=== PATIENT | female | born 1990 | race Hispanic/Latino ===

== ENCOUNTER 2019-03-07 23:07 | Emergency (ER) | payer SELFPAY ==
[2019-03-07 23:33] LABS: #Eosinphils 0.1 thou/uL (0.0-0.7); #Monocytes 0.8 thou/uL (0.11-0.59); #Neutrophils 4.9 thou/uL (1.40-6.50); %Basophils 0.5 % (0.0-1.0); %Eosinophils 1.5 % (0.0-10.0); %Lymphocytes 34.1 % (21.0-51.0); %Monocytes 8.6 % (0.0-10.0); %Neutrophils 55.3 % (42.0-75.0); Hemoglobin 14.3 g/dL (12.0-16.0); Mean Corpuscular HGB CONC 33.7 g/dL (32.0-36.0); Mean Corpuscular Hemoglobin 29.5 pg (27.0-31.0); Mean Corpuscular Volume 87.5 fL (78.0-98.0); Platelet Count 209 thou/uL (130-400); Red Blood Cell (RBC) Count 4.84 mill/uL (4.20-5.40); White Blood Cell (WBC) Count 8.9 thou/uL (4.8-10.8)
[2019-03-07 23:50] LABS: Anion Gap 10 mmol/L (10-20); BUN (Urea Nitrogen) 13 mg/dL (7.0-18.7); Calc. Creatinine Clearance 0 mL/min (70-130); Calcium 9.5 mg/dL (7.8-10.44); Carbon Dioxide 23 mmol/L (22-29); Chloride 107 mmol/L (98-107); Estimated GFR-MDRD 87; Glucose 82 mg/dL (70-105); Potassium 3.7 mmol/L (3.5-5.1); Sodium 136 mmol/L (136-145)
[2019-03-08 00:19] LABS: Bacteria/HPF None Seen HPF (None Seen); Bilirubin Negative (Negative); Blood, Urine Negative (Negative); Clarity Clear (Clear); Glucose, Urine (Dipstick) Normal (Negative); Leukocyte 25 Leu/uL (Negative); Mucous/LPF Rare LPF (<2+); Nitrite Negative (Negative); Protein, Urine (Dipstick) 10 mg/dL (Neg-Trace); RBC/HPF 0-3 HPF (0-3); Squamous Epithelial 0-3 HPF (0-3)
== END 2019-03-08 00:50 | disposition home or self-care (01) ==
LOC: ERS 23:07
DX: O23.11 Infections of bladder in pregnancy, first trimester (principal); O99.281 Endocrine, nutritional and metabolic diseases complicating pregnancy, first trimester; Z3A.11 11 weeks gestation of pregnancy; Z79.899 Other long term (current) drug therapy
CPT/HCPCS: 36415; 80048; 81003; 81015; 84702; 85025; 86900; 86901

== ENCOUNTER 2019-03-26 23:36 | Emergency (ER) | payer OTHER, SELFPAY ==
[2019-03-27 00:16] LABS: #Eosinphils 0.1 thou/uL (0.0-0.7); #Lymphocytes 2.6 thou/uL (1.20-3.40); #Monocytes 0.6 thou/uL (0.11-0.59); #Neutrophils 4.2 thou/uL (1.40-6.50); %Basophils 0.4 % (0.0-1.0); %Eosinophils 1.4 % (0.0-10.0); %Lymphocytes 34.7 % (21.0-51.0); %Monocytes 8.1 % (0.0-10.0); %Neutrophils 55.4 % (42.0-75.0); Hemoglobin 13.7 g/dL (12.0-16.0); Mean Corpuscular HGB CONC 34.8 g/dL (32.0-36.0); Mean Corpuscular Hemoglobin 30.2 pg (27.0-31.0); Mean Corpuscular Volume 86.8 fL (78.0-98.0); Mean Platelet Volume 8.1 fL (7.4-10.4); Platelet Count 184 thou/uL (130-400); Red Blood Cell (RBC) Count 4.54 mill/uL (4.20-5.40); White Blood Cell (WBC) Count 7.5 thou/uL (4.8-10.8)
[2019-03-27 01:51] LABS: Bacteria/HPF None Seen HPF (None Seen); Bilirubin Negative (Negative); Blood, Urine 2+ (Negative); Clarity Clear (Clear); Glucose, Urine (Dipstick) Normal (Negative); Leukocyte Negative Leu/uL (Negative); Nitrite Negative (Negative); Protein, Urine (Dipstick) 10 mg/dL (Neg-Trace); RBC/HPF Greater than 50 HPF (0-3); Urobilinogen Normal mg/dL (Less than 2); WBC/HPF 0-3 HPF (0-3)
[2019-03-27] MEDS ORDERED: Acetaminophen 500 MG TAB ONE (02:44)
--- NOTE | 2019-03-27 07:39 | ULT ---
PRELIMINARY REPORT/[facility]/EMERGENCY AFTER HOURS PROCEDURE: EXAM: US , Limited EXAM DATE/TIME: 03/26/2019 11:59 PM CLINICAL HISTORY: 28 years old, female; Lmp or gestational age (in weeks): 14w4d; Antepartum complications; Bleeding and other: Diarrhea; complicated by abdominal or pelvic pain; Left lower quadrant; Second trimester; ; Patient HX: Pelvic cramping pain - more to llq, vaginal bleeding tonight, diarrhea TECHNIQUE: Imaging protocol: Real-time ultrasound of the maternal uterus with image documentation. Exam focused on the clinical indication. COMPARISON: No relevant prior studies available. FINDINGS: Single living intrauterine gestation in breech presentation. heart rate: 180 bpm. ELVIE: 14w4d. JOANNA(ELVIE): 09/20/2019. JOANNA(LMP): 09/23/2019. Placenta is fundal. No hemorrhage or abruption. Amniotic fluid appears adequate. Cervix is closed. No free fluid. IMPRESSION: Single viable intrauterine . No acute findings. Thank you for allowing us to participate in the care of your patient. Dictated and Authenticated by: Rory Qureshi MD 03/27/2019 1:29 AM Central Time ([place] & [place]) FINAL REPORT LIMITED OB ULTRASOUND: FINDINGS/IMPRESSION: I agree with the preliminary report given by Dr. Rory Qureshi of [facility]. Transcribed Date/Time: 03/27/2019 7:42 AM
== END 2019-03-27 02:47 | disposition home or self-care (01) ==
LOC: ERS 23:36
DX: O20.9 Hemorrhage in early pregnancy, unspecified (principal); O99.281 Endocrine, nutritional and metabolic diseases complicating pregnancy, first trimester; E03.9 Hypothyroidism, unspecified; Z79.899 Other long term (current) drug therapy; Z3A.14 14 weeks gestation of pregnancy
CPT/HCPCS: 36415; 76856; 81003; 81015; 85025

== ENCOUNTER 2019-05-18 10:35 | Outpatient (CLI) | payer OTHER ==
--- NOTE | 2019-05-18 11:40 | ULT ---
Complete obstetrical ultrasound INDICATION: Evaluate anatomy TECHNIQUE: Grayscale, M-mode Doppler and Doppler images were obtained of the abdomen and pelvis to ev aluate the patient's known . COMPARISON: Prior dated March 28, 2019 FINDINGS: Body habitus limit image detail. Number of gestations: Single. Presentation: Transverse with the head to the maternal left. Placental location: Anterior Previa: No evidence for previa. Cervical length: 5.29 cm LUIS: 9.3 cm. heart rate: 156 bpm. Biparietal diameter: 4.95cm, 21 weeks 0 days, Not calculated.. Head circumference: 18.76 cm, 21 weeks 1 day, Not calculated. Abdominal circumference: 15.72 cm, 21 weeks 0 days, Not calculated. Femoral length: 3.54cm, 21 weeks 2 days, Not calculated. Estimated weight: 393 g +/- 57g 0 lbs. 14 oz., 15th percentile SURVEY: head: Normal appearing. Cerebellum: Normal appearing. Cisterna magna: Normal appearing. Lateral ventricles: Normal appearing. 4 chamber heart: Normal appearing.. Stomach: Normal appearing. Kidneys: Normal appearing. Cord insertion: Normal appearing. Bladder: Normal appearing. Spine: The cervical and thoracic spine worse well seen. The lower lumbar and sacral spines were not w ell interrogated. Lips and nose: Not demonstrated Extremities: Normal appearing. Three-vessel CORD: Normal appearing. The average gestational age by ultrasound is 21 weeks and 1 daywith estimated due date of September 27, 2019. The estimated dates by clinical data is 21 weeks 5 dayswith estimated due date of September 23, 2019. IMPRESSION: 1. Single live intrauterine gestation with size and dates as above. 2. survey appeared within normal limits; however, the lower spine and lips and nose were not we ll seen. A follow-up examination in 1-2 weeks to complete the survey is recommended.
== END 2019-05-18 10:36 | disposition home or self-care (01) ==
LOC: BICULT 10:35
DX: O09.92 Supervision of high risk pregnancy, unspecified, second trimester (principal); Z3A.21 21 weeks gestation of pregnancy
CPT/HCPCS: 76805

== ENCOUNTER 2019-06-19 22:06 | Day surgery (SDC) | payer OTHER ==
[2019-06-19 23:02] VITALS: BP 133/61; TEMP 98.7; BMI 54.9
[2019-06-19] MEDS ORDERED: hydrALAZINE 20 MG/ML VIAL SLOW IVP PRN (23:54)
[2019-06-20 00:14] LABS: #Basophils 0.1 thou/uL (0.0-0.2); #Eosinphils 0.2 thou/uL (0.0-0.7); #Lymphocytes 2.6 thou/uL (1.20-3.40); #Monocytes 0.7 thou/uL (0.11-0.59); %Basophils 0.6 % (0.0-1.0); %Eosinophils 1.5 % (0.0-10.0); %Lymphocytes 24.9 % (21.0-51.0); %Neutrophils 66.1 % (42.0-75.0); Hemoglobin 12.4 g/dL (12.0-16.0); Mean Corpuscular HGB CONC 34.7 g/dL (32.0-36.0); Mean Corpuscular Hemoglobin 30.8 pg (27.0-31.0); Mean Corpuscular Volume 88.8 fL (78.0-98.0); Mean Platelet Volume 7.8 fL (7.4-10.4); Platelet Count 216 thou/uL (130-400); RBC Distribution Width 13.8 % (11.5-14.5); Red Blood Cell (RBC) Count 4.03 mill/uL (4.20-5.40); White Blood Cell (WBC) Count 10.6 thou/uL (4.8-10.8)
[2019-06-20 00:28] LABS: Bilirubin Negative (Negative); Blood, Urine Negative (Negative); Clarity Clear (Clear); Glucose, Urine (Dipstick) Negative (Negative); Leukocyte Negative (Negative); Nitrite Negative (Negative); Protein, Urine (Dipstick) Negative (Neg-Trace)
[2019-06-20 00:33] LABS: ALT (SGPT) 50 U/L (8-55); AST (SGOT) 31 U/L (5-34); Albumin 3.7 g/dL (3.5-5.0); Alkaline Phosphatase 71 U/L (40-110); Anion Gap 11 mmol/L (10-20); BUN (Urea Nitrogen) 11 mg/dL (7.0-18.7); Bilirubin, Total 0.5 mg/dL (0.2-1.2); Calc. Creatinine Clearance 250 mL/min (70-130); Calcium 9.4 mg/dL (7.8-10.44); Carbon Dioxide 23 mmol/L (22-29); Chloride 108 mmol/L (98-107); Estimated GFR-MDRD Greater than 90; Glucose 79 mg/dL (70-105); Potassium 3.7 mmol/L (3.5-5.1); Protein, Total 6.7 g/dL (6.0-8.3); Sodium 138 mmol/L (136-145)
[2019-06-20 01:14] LABS: Creatinine, Urine 169.82 mg/dL (47-110)
--- NOTE | 2019-06-20 07:28 | SS ---
DATE OF ADMISSION: 06/19/2019 DATE OF DISCHARGE: 06/20/2019 REGULAR PHYSICIAN: Ivy Bae MD EVALUATING PHYSICIAN: Parish Arredondo MD CHIEF COMPLAINT: Elevated blood pressure at home. HISTORY OF PRESENT ILLNESS: Ms. Escalera is a 29-year-old 10, para 4, with an estimated date of confinement of 09/29/2019, who presents complaining of elevated blood pressure 157/87 at home. She also has had two episodes of diarrhea and some mild right upper quadrant discomfort. She denies bleeding or ruptured membranes. She denies visual changes. Her care has been with Dr. Ivy Bae and has been uncomplicated so far. PAST OBSTETRICAL HISTORY: Includes one elective termination of , 4 miscarriages, and 4 vaginal deliveries. PAST MEDICAL HISTORY: Hypothyroidism. PAST SURGICAL HISTORY: D and C x1. CURRENT MEDICATIONS: vitamins and Synthroid 75 mcg daily. ALLERGIES: NO KNOWN ALLERGIES. SOCIAL HISTORY: Denies tobacco, alcohol, or drug use. FAMILY HISTORY: Unremarkable. REVIEW OF SYSTEMS: Denies ruptured membranes, vaginal bleeding, or decreased movement. PHYSICAL EXAMINATION: VITAL SIGNS: Her blood pressures in triage are initially 113/57 and 116/63. She is afebrile. GENERAL: She is pleasant and in no distress. ABDOMEN: Soft, obese, and nontender. PELVIC: Deferred. heart rate tracing is stable. No decelerations are seen. No uterine activity seen. LABORATORY DATA: White count 10.6, hemoglobin and hematocrit are 12.4 and 35.8, and platelet count 216,000. Chemistries show sodium of 138, potassium of 3.7, creatinine of 0.73, glucose of 79, total bilirubin 0.5, AST 31, ALT 50. Urinalysis shows specific gravity of 1.020 with negative protein, negative glucose, trace ketones, and protein to creatinine ratio of 0.06. ASSESSMENT: 1. Twenty-six week intrauterine . 2. No evidence of elevated blood pressure or -induced hypertension. PLAN: The patient has been dismissed to home. She was reassured. Signs and symptoms of preeclampsia were reviewed with her in detail. She states she has a followup appointment with Dr. Ivy Bae in the next 2 weeks. Job ID: [id number]
== END 2019-06-20 01:35 | disposition home or self-care (01) ==
LOC: L&D/OP 22:06
PROVIDERS: ATTEND Obstetrics & Gynecology
DX: O99.89 Other specified diseases and conditions complicating pregnancy, childbirth and the puerperium (principal); R03.0 Elevated blood-pressure reading, without diagnosis of hypertension; R10.11 Right upper quadrant pain; O99.282 Endocrine, nutritional and metabolic diseases complicating pregnancy, second trimester; E03.9 Hypothyroidism, unspecified; Z3A.26 26 weeks gestation of pregnancy; Z79.899 Other long term (current) drug therapy
CPT/HCPCS: 36415; 80053; 81003; 82570; 84156; 85025; 99283

== ENCOUNTER 2019-07-26 10:16 | Outpatient (CLI) | payer OTHER ==
--- NOTE | 2019-07-26 11:56 | ULT ---
LIMITED OB ULTRASOUND: HISTORY: Evaluate growth. FINDINGS: A single live intrauterine gestation is seen with measurements corresponding to an estimated gestatio nal age of 31 weeks 5 days and an JOANNA of 09/22/2019. The estimated weight measures 1732 g or 3 lbs 13 oz (47th percentile by Hadlock criteria). measurements are as follows: BPD: 7.98 cm (32 weeks 1 day) HC: 29.15 cm (32 weeks 1 day) AC: 27.01 cm (31 weeks 1 day) FL: 5.96 cm (31 weeks 1 day) heart rate measures 150 beats per minute. Placenta is anteriorly located without evidence of pl acenta previa. LUIS measures 15.8 cm. IMPRESSION: Single live intrauterine of 31 weeks' 5 days' estimated gestational age and estimated date of delivery of 09/22/2019. POS: MIKAL
== END 2019-07-26 10:17 | disposition home or self-care (01) ==
LOC: BICULT 10:16
PROVIDERS: ATTEND Nurse Practitioner
DX: O09.93 Supervision of high risk pregnancy, unspecified, third trimester (principal); Z3A.31 31 weeks gestation of pregnancy
CPT/HCPCS: 76815

== ENCOUNTER 2019-08-31 00:22 | Day surgery (SDC) | payer OTHER ==
[2019-08-31 00:53] VITALS: BMI 55.7
[2019-08-31] MEDS ORDERED: hydrALAZINE 20 MG/ML VIAL SLOW IVP PRN (02:14)
--- NOTE | 2019-08-31 02:49 | PRG ---
DATE OF SERVICE: 08/31/2019 TIME OF SERVICE: 02:15. PRESENTING COMPLAINT: Blurred vision and mild headache. HISTORY OF PRESENT ILLNESS: The patient is a 29-year-old, 12, para 4, AB 7 at 36 weeks gestation. Antepartum records not available. She sees Dr. Rich Carter at [facility]. She states that she has small amount of blurred vision earlier this evening and a mild headache. She denies scotoma. She denies right upper quadrant pain. She reports an active fetus. [facility]ODER HISTORY: Antepartum record not available. Vaginal delivery x4, D and C x1, miscarriage x7. MEDICAL HISTORY: Denies. PAST SURGICAL HISTORY: Denies. ALLERGIES: DENIES. MEDICATIONS: vitamins. SOCIAL HISTORY: Denies tobacco, alcohol, or IV drug abuse. FAMILY HISTORY: Noncontributory. REVIEW OF SYSTEMS: Noncontributory. PHYSICAL EXAMINATION: GENERAL: Morbidly obese female. VITAL SIGNS: Temperature 98.2, pulse 97, respirations 18, and blood pressure is 110/72. HEENT: Within normal limits. LUNGS: Clear to auscultation bilaterally. HEART: Regular rate and rhythm. ABDOMEN: Soft, nontender. Fundal height 36 cm. Vaginal exam deferred. EXTREMITIES: No clubbing, cyanosis, or edema. monitoring is carried out for greater than an hour, which revealed category 1 tracing. No contractions. No decelerations. Serial blood pressures carried out, systolics were in the 110s to 120s with diastolics in the 70s to 80s. No evidence. IMPRESSION: Mild visual changes and headache in without evidence of preeclampsia at 36 weeks gestation. PLAN: ER precautions. Discharge home. Keep scheduled followup with Dr. Carter. Job ID: [id number]
== END 2019-08-31 02:23 | disposition home or self-care (01) ==
LOC: L&D/OP 00:22
PROVIDERS: ATTEND Family Medicine
DX: O99.89 Other specified diseases and conditions complicating pregnancy, childbirth and the puerperium (principal); H53.8 Other visual disturbances; R51 Headache; O99.213 Obesity complicating pregnancy, third trimester; E66.01 Morbid (severe) obesity due to excess calories; O09.293 Supervision of pregnancy with other poor reproductive or obstetric history, third trimester; O34.219 Maternal care for unspecified type scar from previous cesarean delivery; Z3A.36 36 weeks gestation of pregnancy
CPT/HCPCS: 99282

== ENCOUNTER 2019-09-04 18:00 | Inpatient (IN) | payer OTHER ==
[2019-09-04] MEDS ORDERED: Misoprostol 200 MCG TAB PR PRN (22:17)
[2019-09-04] MEDS ORDERED: Ondansetron PF 4 MG/2 ML Vial IVP PRN (22:17)
[2019-09-04] MEDS ORDERED: NS w/ Oxytocin 10 units 500 ML IV SCH (22:17)
[2019-09-04] MEDS ORDERED: NS / Oxytocin 40 units/1000ml 1,000 ML IV PRN (22:17)
[2019-09-04] MEDS ORDERED: Diphenoxylate HCl/Atropine Tablet PO PRN (22:17)
[2019-09-04] MEDS ORDERED: Lidocaine 1% (PF) 30 ML VIAL SC PRN (22:17)
[2019-09-04] MEDS ORDERED: HYDROcodone/Acetaminophen 5/325 mg Tablet PO PRN (22:17)
[2019-09-04] MEDS ORDERED: hydrALAZINE 20 MG/ML VIAL SLOW IVP PRN (22:17)
[2019-09-04] MEDS ORDERED: Promethazine HCl 25 MG/ML VIAL IM PRN (22:17)
[2019-09-04] MEDS ORDERED: Butorphanol Tartrate 1 MG/ML VIAL SLOW IVP PRN (22:17)
[2019-09-04] MEDS ORDERED: Ibuprofen 800 MG TAB PO PRN (22:17)
[2019-09-04] MEDS ORDERED: Methylergonovine 0.2 MG/ML VIAL IM PRN (22:17)
[2019-09-04] MEDS ORDERED: Carboprost 250 MCG/ML AMP IM PRN (22:17)
[2019-09-04] MEDS: Lactated Ringer's 1,000 ML IV SCH (22:35)
[2019-09-04 22:51] LABS: Hemoglobin 12.9 g/dL (12.0-16.0); Mean Corpuscular HGB CONC 34.2 g/dL (32.0-36.0); Mean Corpuscular Hemoglobin 29.3 pg (27.0-31.0); Mean Corpuscular Volume 85.8 fL (78.0-98.0); Mean Platelet Volume 8.4 fL (7.4-10.4); Platelet Count 244 thou/uL (130-400); RBC Distribution Width 14.7 % (11.5-14.5); Red Blood Cell (RBC) Count 4.39 mill/uL (4.20-5.40); White Blood Cell (WBC) Count 9.2 thou/uL (4.8-10.8)
[2019-09-04 23:34] LABS: HBSAg Index 0.25 S/CO (0-0.99); Hep B Surf Ag Non-Reactive S/CO (NonReactive); Syphilis Antibody Nonreactive (Nonreactive); Syphilis Antibody Index 0.02 S/CO (<1.00 Non-Reactive)
[2019-09-04] MEDS: NS w/ Oxytocin 10 units 500 ML IV SCH (23:35)
[2019-09-04 23:46] VITALS: BMI 56.0
[2019-09-05] MEDS: Misoprostol 100 MCG TAB PO SCH ×4 (00:42→16:11)
[2019-09-05] MEDS: Lactated Ringer's 1,000 ML IV SCH ×3 (07:02→18:52)
[2019-09-05] MEDS ORDERED: Fentanyl 4 mcg/Bup 0.1% Cadd 100 ML ONE (14:34)
[2019-09-05] MEDS ORDERED: Lidocaine 1.5%/Epinephrine 1:200,000 5 ML AMPUL IJ ONE (14:39)
[2019-09-05] MEDS ORDERED: Naloxone HCl 0.4 mg/ml Vial IVP PRN ×4 (15:20→22:00)
[2019-09-05] MEDS ORDERED: Lactated Ringer's 500 ML IV PRN (15:20)
[2019-09-05] MEDS ORDERED: ePHEDrine/0.9% NaCl/PF SYRINGE 50 mg/10 ml SLOW IVP PRN (15:20)
[2019-09-05] MEDS ORDERED: Acetaminophen 325 MG TAB PO PRN (15:20)
[2019-09-05] MEDS ORDERED: Ondansetron PF 4 MG/2 ML Vial IVP PRN ×2 (15:20→22:00)
[2019-09-05] MEDS ORDERED: Promethazine HCl 25 MG/ML VIAL IM PRN ×2 (15:20→22:00)
[2019-09-05] MEDS ORDERED: diphenhydrAMINE 50 MG/ML VIAL IVP PRN (15:20)
[2019-09-05] MEDS ORDERED: Communication Order-Pharmacy FS PRN (15:30)
[2019-09-05] MEDS ORDERED: Fentanyl 4 mcg/Bupivacaine 0.1% Cassette 100 ML EPIDURAL SCH (15:30)
[2019-09-05] MEDS ORDERED: Azithromycin 500 MG VIAL ONE (20:40)
[2019-09-05] MEDS ORDERED: Bicitra 30 ML UDCUP PO SCH (20:45)
[2019-09-05] MEDS ORDERED: Azithromycin 500 MG in Sodium Chloride 0.9% 250 ML 250 ML IVPB SCH (20:45)
[2019-09-05] MEDS ORDERED: CEFAZOLIN 3 GM in Sodium Chloride 0.9% 100 ML IVPB SCH (20:45)
[2019-09-05] MEDS ORDERED: Lidocaine 2% 10 ML INJ ONE ×2 (20:59→21:03)
[2019-09-05] MEDS ORDERED: Lidocaine 1% PF 5 ML VIAL ONE (21:03)
[2019-09-05] MEDS ORDERED: Oxytocin 10 UNITS/ML VIAL ONE ×2 (21:06→21:42)
[2019-09-05] MEDS ORDERED: MORPHINE 5 MG/10 ML PF VIAL ONE (21:06)
[2019-09-05] MEDS ORDERED: PHENYLEPHRINE-NS 100 MCG/ML 10 ML SYRINGE ONE (21:27)
[2019-09-05] MEDS ORDERED: Succinylcholine Chloride 20 MG/ML 10 ml SYRINGE FS ONE (21:30)
[2019-09-05] MEDS ORDERED: PROPOFOL 20 ML ONE (21:30)
[2019-09-05] MEDS ORDERED: Carboprost 250 MCG/ML AMP ONE (21:32)
[2019-09-05] MEDS ORDERED: Methylergonovine 0.2 MG/ML VIAL ONE (21:32)
[2019-09-05] MEDS ORDERED: Bupivacaine PF 0.5% 30 ML VIAL ONE (21:33)
[2019-09-05] MEDS ORDERED: Fentanyl 100 MCG/2 ML VIAL ONE (21:39)
[2019-09-05 21:53] LABS: Actual Bicarbonate (HCO3a) 25.2 mEq/L (22-28); Base Excess (BEa) -3.6 mEq/L (-2.0 to +3.0)
[2019-09-05 21:55] LABS: Actual Bicarbonate (HCO3v) 23 mEq/L (22-28); Base Excess -3.2 mEq/L (-2.0 to +3.0); pH (Cord, venous) 7.34 (7.32-7.43)
[2019-09-05] MEDS ORDERED: Meperidine HCl/PF 25 MG/ML VIAL SLOW IVP PRN (22:00)
[2019-09-05] MEDS ORDERED: Ondansetron HCl/PF 4 MG/2 ML Vial IVP PRN (22:00)
[2019-09-05] MEDS ORDERED: Ketorolac Tromethamine 30 MG/ML VIAL IVP SCH (22:00)
[2019-09-05] MEDS ORDERED: L&D-Morphine 4 MG/ML VIAL SLOW IVP PRN (22:00)
[2019-09-05] MEDS ORDERED: HYDROmorphone 2 MG/ML VIAL SLOW IVP PRN (22:00)
[2019-09-05] MEDS ORDERED: Promethazine HCl 25 MG SUPP PR PRN (22:00)
[2019-09-05] MEDS ORDERED: Communication Order-Pharmacy FS SCH (22:00)
[2019-09-05] MEDS ORDERED: Naloxone HCl 0.4 mg/ml Vial IV PRN (22:00)
[2019-09-05] MEDS ORDERED: Ketorolac Tromethamine 30 MG/ML VIAL IVP PRN (22:00)
[2019-09-05] MEDS ORDERED: Ondansetron PF 4 MG/2 ML Vial ONE (22:08)
--- NOTE | 2019-09-05 23:13 | PDOC.OPDEL ---
OB Operative/Delivery Note Delivery Dr/Surgeon: Dr. Carter Assist: Dr. Roberson Pre-Delivery Diagnosis: medically indicated induction (chronic HTN) Procedure/Post Delivery Dx: primary low transverse CS Weeks gestation: 37 (37w4d) Anesthesia: epidural - Findings A Sex: male - Additional Findings/Plan Placenta delivered: manual removal findings: low transverse hysterotomy without extension Estimated blood loss: 600mL Compilations/Other Findings: Preoperative Diagnosis: 1)Term intrauterine 2)Non-reassuring heart tones 3)Chronic HTN 4)Morbid Obesity Postoperative Diagnosis: 1)Term intrauterine , delivered 2)Non-reassuring heart tones; multiple cord entanglements 3)Chronic HTN 4)Morbid Obesity Anesthesia: epidural Indications: The patient is a 29 year old female at 37.4 weeks gestation who presented for IOL for cHTN and when she was about 6cm developed recurrent deep variable decels not resolved with amnioinfusion. Procedure in Detail: After risks, benefits, and alternatives were explained to the patient, she gave informed consent. Pre-operative antibiotics included Cefazolin 2 gram IV, Azithromycin 500mg IV. The patient was taken to the operating room. She was placed in the supine position with a left tilt and prepped and draped in usual sterile fashion. A Pfannenstiel incision was made with a scalpel and carried down to the level of the fascia which was sharply nicked. The fascial cut was extended bilaterally with Hale scissors. The inferior and superior edges of the cut fascial edges were elevated with Yarely clamps and the underlying rectus muscles were sharply and bluntly dissected free. The recti were divided digitally and retracted manually. The peritoneum was entered bluntly and retracted manually. Bladder blade was placed. A low transverse score was made with the scalpel and the uterus was entered in the midline bluntly. Clear fluid was seen. The hysterotomy was extended manually. The was noted to be vertex and was easily delivered by fundal pressure. A nuchal cord x 2, and a cord around the body and right lower extremity were noted at delivery; Mouth and nares were bulb suctioned. Cord was untangled, clamped and cut and grossly normal male was handed to waiting nurse. Cord blood was obtained. Placenta was manually extracted, found to be intact with 3 vessel cord and discarded. The uterus was externalized and the endometrium was curetted with a dry lap. The bladder blade was replaced and the uterus was closed with a running locking #1 Monocryl suture. Following this multiple figure of eight sutures were placed on the middle aspect of the hysterotomy due to bleeding. There was still noted to be some bleeding so an imbricating layer was done in the usual fashion with 2-0 chromic suture. The abdomen was irrigated with saline and suctioned free of clots. Seprafilm was placed over the anterior aspect of the uterus. The uterus was internalized and the hysterotomy was again noted to be hemostatic. The peritoneum was closed with 3-0 monocryl running, non-locking suture. The fascia was closed with a running non-locking 0-PDS suture. The subcutaneous tissue was irrigated and there were no bleeders. The subcutaneous layer was closed with interrupted 3-0 vicryl suture. The skin was approximated with mikal and a reena wound vac was placed. All counts were correct. The patient tolerated the procedure well and was taken to the recovery room in stable condition. Estimated Blood Loss: 600 ml Complications: None Specimens: Cord blood sent to lab for blood type, cord gas sent, placenta sent for pathology. Findings: Grossly normal male went to nursery. Grossly normal placenta with 3 vessel cord, sent for pathology. Drains: Matthew to gravity draining clear urine Post delivery plan: routine recovery
[2019-09-05] MEDS ORDERED: Ketorolac Tromethamine 30 MG/ML VIAL ONE (23:22)
[2019-09-05] MEDS ORDERED: NS / Oxytocin 40 units/1000ml 1,000 ML ONE (23:34)
[2019-09-05] MEDS ORDERED: Sodium Chloride 0.9% 10 ML ONE ×2 (23:46→23:47)
[2019-09-06] MEDS ORDERED: hydrALAZINE 20 MG/ML VIAL SLOW IVP PRN (00:58)
[2019-09-06] MEDS ORDERED: Ondansetron PF 4 MG/2 ML Vial IVP PRN (00:58)
[2019-09-06] MEDS ORDERED: Bisacodyl 10 MG SUPP PR PRN (00:58)
[2019-09-06] MEDS ORDERED: diphenhydrAMINE 25 MG CAP PO PRN (00:58)
[2019-09-06] MEDS ORDERED: Promethazine HCl 25 MG/ML VIAL IM PRN (00:58)
[2019-09-06] MEDS ORDERED: Lanolin Ointment 7 GM TUBE TOP PRN (00:58)
[2019-09-06] MEDS: Misoprostol 100 MCG TAB PO SCH ×2 (01:41→01:42)
[2019-09-06] MEDS: NS w/ Oxytocin 10 units 500 ML IV SCH (01:42)
[2019-09-06] MEDS: Lactated Ringer's 1,000 ML IV SCH (01:57)
[2019-09-06] MEDS: diphenhydrAMINE 50 MG/ML VIAL IVP PRN ×2 (02:40→06:36)
[2019-09-06 05:41] LABS: Hemoglobin 10.3 g/dL (12.0-16.0); Mean Corpuscular HGB CONC 33.9 g/dL (32.0-36.0); Mean Corpuscular Hemoglobin 29.5 pg (27.0-31.0); Mean Corpuscular Volume 86.8 fL (78.0-98.0); Mean Platelet Volume 8.4 fL (7.4-10.4); Platelet Count 173 thou/uL (130-400); RBC Distribution Width 14.4 % (11.5-14.5); White Blood Cell (WBC) Count 10.9 thou/uL (4.8-10.8)
[2019-09-06] MEDS: Ketorolac Tromethamine 30 MG/ML VIAL IVP SCH ×3 (06:25→17:43)
[2019-09-06] MEDS: Ferrous Sulfate 325 MG TAB PO SCH ×2 (08:01→15:48)
[2019-09-06] MEDS ORDERED: Adacel (T-DAP) 0.5 ML SYRINGE IM ONE (09:00)
[2019-09-06] MEDS: Prenatal Vitamin 1 TAB PO SCH (09:09)
[2019-09-06] MEDS: Docusate Calcium (SURFAK) 240 MG CAP PO SCH ×2 (09:09→19:28)
[2019-09-06] MEDS: Simethicone Chewable 80 MG TAB PO PRN (09:09)
[2019-09-06] MEDS: HYDROcodone/Acetaminophen 5/325 mg Tablet PO PRN ×3 (09:38→23:22)
[2019-09-06] MEDS ORDERED: Meperidine HCl/PF 25 MG/ML VIAL IM PRN (10:00)
[2019-09-06] MEDS: Ibuprofen 800 MG TAB PO SCH (19:27)
[2019-09-07] MEDS: Ibuprofen 800 MG TAB PO SCH ×3 (03:54→20:09)
[2019-09-07] MEDS: HYDROcodone/Acetaminophen 5/325 mg Tablet PO PRN ×5 (03:55→21:07)
[2019-09-07] MEDS: Ferrous Sulfate 325 MG TAB PO SCH ×2 (08:07→16:43)
[2019-09-07] MEDS: Docusate Calcium (SURFAK) 240 MG CAP PO SCH ×2 (10:04→20:09)
[2019-09-07] MEDS: Prenatal Vitamin 1 TAB PO SCH (10:04)
[2019-09-07] MEDS: Simethicone Chewable 80 MG TAB PO PRN ×3 (10:05→21:15)
[2019-09-08] MEDS: HYDROcodone/Acetaminophen 5/325 mg Tablet PO PRN ×4 (00:52→14:54)
[2019-09-08] MEDS: Ibuprofen 800 MG TAB PO SCH ×2 (04:06→13:46)
[2019-09-08] MEDS: Simethicone Chewable 80 MG TAB PO PRN ×3 (05:28→13:50)
[2019-09-08] MEDS: Ferrous Sulfate 325 MG TAB PO SCH ×2 (08:04→18:04)
[2019-09-08] MEDS: Docusate Calcium (SURFAK) 240 MG CAP PO SCH (10:04)
[2019-09-08] MEDS: Prenatal Vitamin 1 TAB PO SCH (10:04)
[2019-09-08 10:18] VITALS: BP 131/75; TEMP 97.7
[2019-09-08] MEDS ORDERED: Milk Of Magnesia 30 ML UDCUP PO SCH (17:30)
== END 2019-09-08 19:10 | disposition home or self-care (01) | DRG 788 ==
LOC: L&D 21:53 → 3SW 09-06 01:24
PROVIDERS: ADMIT Family Medicine; ATTEND Family Medicine
PROC: 10D00Z1 Extraction of Products of Conception, Low, Open Approach (ICD-10-PCS; principal; 2019-09-05)
DX: O10.92 Unspecified pre-existing hypertension complicating childbirth (principal); Z37.0 Single live birth; Z3A.37 37 weeks gestation of pregnancy; O99.214 Obesity complicating childbirth; E66.01 Morbid (severe) obesity due to excess calories; O76 Abnormality in fetal heart rate and rhythm complicating labor and delivery
CPT/HCPCS: 36415; 51702; 76815; 82805; 85027; 86780; 86850; 86900; 86901; 87340; 88307; J0456; J0690; J1200; J1885; J2001; J2210; J2274; J2310; J2405; J2590; J2704; J3010; J3490; Q0163; S0020

== ENCOUNTER 2019-11-10 01:42 | Observation (INO) | payer OTHER ==
[2019-11-10] MEDS ORDERED: Ketorolac Tromethamine 30 MG/ML VIAL ONE (01:51)
[2019-11-10] MEDS ORDERED: Ondansetron PF 4 MG/2 ML Vial ONE ×2 (02:04→11:09)
[2019-11-10 02:15] LABS: BHCG - Serum Negative (NEGATIVE); Pregs Control Background? CLEAR/WHITE (CLR/WHITE); Pregs Control Bar Appear? YES (CONTROL BAR)
[2019-11-10 02:19] LABS: ALT (SGPT) 238 U/L (8-55); AST (SGOT) 163 U/L (5-34); Albumin 4.3 g/dL (3.5-5.0); Alkaline Phosphatase 86 U/L (40-110); Anion Gap 14 mmol/L (10-20); BUN (Urea Nitrogen) 12 mg/dL (7.0-18.7); Bilirubin, Total 0.6 mg/dL (0.2-1.2); Calc. Creatinine Clearance 0 mL/min (70-130); Calcium 9.7 mg/dL (7.8-10.44); Carbon Dioxide 27 mmol/L (22-29); Chloride 105 mmol/L (98-107); Estimated GFR-MDRD 81; Glucose 100 mg/dL (70-105); Lipase 14 U/L (8-78); Potassium 3.5 mmol/L (3.5-5.1); Protein, Total 7.3 g/dL (6.0-8.3); Sodium 142 mmol/L (136-145)
[2019-11-10 02:21] LABS: #Eosinphils 0.1 thou/uL (0.0-0.7); #Lymphocytes 2.9 thou/uL (1.20-3.40); #Monocytes 0.6 thou/uL (0.11-0.59); #Neutrophils 4.5 thou/uL (1.40-6.50); %Basophils 0.1 % (0.0-1.0); %Eosinophils 1.4 % (0.0-10.0); %Lymphocytes 35.5 % (21.0-51.0); %Monocytes 6.9 % (0.0-10.0); %Neutrophils 56.1 % (42.0-75.0); Hemoglobin 14.3 g/dL (12.0-16.0); Mean Corpuscular HGB CONC 32.2 g/dL (32.0-36.0); Mean Corpuscular Hemoglobin 27.8 pg (27.0-31.0); Mean Corpuscular Volume 86.4 fL (78.0-98.0); Mean Platelet Volume 8.4 fL (7.4-10.4); Platelet Count 258 thou/uL (130-400); RBC Distribution Width 13.5 % (11.5-14.5); Red Blood Cell (RBC) Count 5.15 mill/uL (4.20-5.40); White Blood Cell (WBC) Count 8.1 thou/uL (4.8-10.8)
[2019-11-10] MEDS ORDERED: Morphine 4 MG/ML VIAL ONE (03:31)
[2019-11-10] MEDS ORDERED: Ondansetron PF 4 MG/2 ML Vial IVP PRN ×2 (04:24→11:02)
[2019-11-10] MEDS ORDERED: Ondansetron ODT 4 MG TAB SL PRN (04:24)
[2019-11-10] MEDS ORDERED: Morphine 4 MG/ML VIAL SLOW IVP PRN ×2 (04:25→11:02)
[2019-11-10 05:05] VITALS: BMI 54.4
--- NOTE | 2019-11-10 08:18 | ULT ---
PRELIMINARY REPORT/[facility]/EMERGENCY AFTER HOURS PROCEDURE: EXAM: US Abdomen Limited, Right Upper Quadrant. CLINICAL HISTORY: HX: RUQ PAIN, ELEVATED LFTS. SEE NOTES ON LAST IMAGE. THANKS TECHNIQUE: Real-time ultrasound of the right upper quadrant with image documentation. COMPARISON: None provided. FINDINGS: LIVER: Demonstrates fatty infiltration. GALLBLADDER: Distended with multiple tiny calculi. No wall thickening. No pericholecystic fluid. The patient demonstrated a positive sonographic Babcock's sign COMMON BILE DUCT: No dilation. Measures 6 mm PANCREAS: Obscured by overlying bowel gas. RIGHT KIDNEY: Unremarkable. No hydronephrosis. Measures 10.2 cm IMPRESSION: Cholelithiasis. The patient demonstrated a positive sonographic Babcock's sign however there is no ev idence for wall thickening or pericholecystic fluid. Fatty infiltration of the liver is noted ELECTRONICALLY SIGNED BY: Chandler Bradford MD Nov 10, 2019 3:24:21 AM CDT FINAL REPORT ULTRASOUND GALLBLADDER RIGHT UPPER QUADRANT: CLINICAL HISTORY: Right upper quadrant pain. Elevated LFTs.. COMPARISON: None. . FINDINGS: Pancreas: Obscured by bowel gas. Liver:Heterogeneous echotexture may be due to hepatic steatosis or hepatocellular disease. Limited ev aluation for hepatic masses. Gallbladder: Distended gallbladder. Small echogenic foci may represent nonshadowing stones. No significant pericholecystic fluid. Babcock's sign:Positive. Portal Vein: Not assessed. Bile ducts: Poorly visualized Right kidney: No hydronephrosis. Right kidney measures 10.2 cm in length. IMPRESSION: 1. This report is in agreement with initial report by [facility]. There is sonographic concern for possible cholecystitis. 2. Markedly distended gallbladder. Positive Babcock sign. The possibility of cholecystitis is raised. HIDA scan if clinically warranted. 3. Suboptimal evaluation of the common bile duct. Transcribed Date/Time: 11/10/2019 8:23 AM
--- NOTE | 2019-11-10 08:49 | RAD ---
CHEST 1 VIEW: HISTORY: Epigastric pain. FINDINGS: Heart size and mediastinum are within normal limits for the portable technique. The lungs are clear of any infiltrative process. There are no significant bony findings. IMPRESSION: No active intrathoracic disease. POS: TPC
[2019-11-10] MEDS ORDERED: Ondansetron ODT 4 MG TAB PO PRN (11:02)
[2019-11-10] MEDS ORDERED: hydrALAZINE 20 MG/ML VIAL SLOW IVP PRN (11:02)
[2019-11-10] MEDS ORDERED: Morphine 2 MG/ML SYRINGE SLOW IVP PRN (11:02)
[2019-11-10] MEDS ORDERED: Ketorolac Tromethamine 30 MG/ML VIAL IVP PRN (11:08)
[2019-11-10] MEDS ORDERED: Succinylcholine Chloride 20 MG/ML 10 ml SYRINGE FS ONE (11:09)
[2019-11-10] MEDS ORDERED: Glycopyrrolate 0.2 MG/ML 5 ML SYRINGE ONE (11:09)
[2019-11-10] MEDS ORDERED: Dexamethasone 20 MG/5 ML VIAL ONE (11:09)
[2019-11-10] MEDS ORDERED: diphenhydrAMINE 50 MG/ML VIAL ONE (11:09)
[2019-11-10] MEDS ORDERED: PROPOFOL 200 MG/20 ML VIAL ONE (11:09)
[2019-11-10] MEDS ORDERED: Rocuronium Bromide 10 MG/ML (10ML VIAL) ONE (11:09)
[2019-11-10] MEDS ORDERED: Lidocaine 1% PF 5 ML VIAL ONE (11:09)
[2019-11-10] MEDS ORDERED: Sodium Chloride 0.9% 1,000 ML IV SCH (11:15)
[2019-11-10] MEDS ORDERED: Ketorolac Tromethamine 30 MG/ML VIAL IVP SCH (11:15)
--- NOTE | 2019-11-10 11:34 | HP ---
HISTORY OF PRESENT ILLNESS: Anupama Rowe is a 29-year-old female, onset of right upper quadrant pain yesterday. She is 2 months , 4, para 4, 4th time mother. she evaluated in the emergency room normal liver function test, common bile duct 6 mm. Sonographic positive Babcock sign and multiple gallstones. She was admitted for acute cholecystitis from the emergency room. As I see her this morning, there has been no antibiotics ordered or IV fluids ordered. FAMILY HISTORY: Negative. REVIEW OF SYSTEMS: Noncontributory. MEDICATIONS: At home: 1. Iron. 2. Levothyroxine. SOCIAL HISTORY: Tobacco none, alcohol none. PAST SURGICAL HISTORY: Noncontributory. PAST MEDICAL HISTORY: Noncontributory. REVIEW OF SYSTEMS: Noncontributory. PHYSICAL EXAMINATION: VITAL SIGNS: Height 5 foot 3 inches, 307 pounds, 54 BMI, 98.1, 60, 142/80. HEAD, EARS, EYES, NOSE AND THROAT: Unremarkable. Sclerae nonicteric. SKIN: Nonjaundiced. LUNGS: Clear to auscultation. CARDIAC: Regular rate and rhythm without murmur or gallop. No wheezing. ABDOMEN: Soft and obese. Tenderness in right upper quadrant with mild guarding. Positive Babcock's. EXTREMITIES: Unremarkable. No ankle edema. Palpable pulses. No lymphadenopathy at neck, groins, or axilla. NEUROLOGIC: Intact. LABORATORY DATA: Liver function tests normal. Basic metabolic profile and renal function normal. Hemoglobin 14 and white count 8. ASSESSMENT AND PLAN: 1. Cholecystitis, cholelithiasis, recommend laparoscopic video cholecystectomy. Risks of infection, bleeding, visceral and biliary injury, open procedure discussed, consents. Questions answered. We will proceed today. She is agreeable. 2. Morbid obesity. Job ID: [id number]
[2019-11-10] MEDS ORDERED: Fentanyl 250 MCG/5 ML VIAL ONE (14:06)
[2019-11-10] MEDS ORDERED: Levofloxacin 500 mg/D5W 100 ml Premix Bag ONE (14:08)
[2019-11-10] MEDS ORDERED: Lidocaine 1% w/Epinephrine 1:100K 20 ML VIAL ONE (14:20)
[2019-11-10] MEDS ORDERED: Bupivacaine PF 0.5% 30 ML VIAL ONE (14:20)
[2019-11-10] MEDS ORDERED: Acetaminophen 500 MG TAB PO PRN (14:47)
[2019-11-10] MEDS ORDERED: traMADol HCl 50 MG TAB PO PRN ×2 (14:47)
[2019-11-10] MEDS ORDERED: Ibuprofen 600 MG TAB PO PRN (14:47)
[2019-11-10] MEDS ORDERED: Fentanyl 100 MCG/2 ML VIAL ONE ×2 (15:49→16:11)
--- NOTE | 2019-11-10 16:13 | OP ---
DATE OF PROCEDURE: 11/10/2019 PREOPERATIVE DIAGNOSES: Cholecystitis, cholelithiasis chronic and acute morbid obesity . POSTOPERATIVE DIAGNOSES: Cholecystitis, cholelithiasis chronic and acute morbid obesity . PROCEDURE PERFORMED: Laparoscopic video cholecystectomy. ANESTHESIA: General, local 0.5% Marcaine 30 mL mixed with 1% Xylocaine with epinephrine 20 mL. DESCRIPTION OF PROCEDURE: The patient was taken to the operating room, where under general anesthesia, abdomen was prepared with ChloraPrep and draped in routine fashion. Local anesthetic was infiltrated in the skin and subcutaneous tissue about all port site. An infraumbilical incision was made, pneumoperitoneum to 15 mmHg obtained with a Veress needle, replaced with a 5 port, laparoscope inserted. Right subxiphoid incision was made and 11 port placed, right subcostal incision was made at midclavicular entrance line and the 5 port was placed. The gallbladder was acutely inflamed. Fundus grasped at the cephalad. Infundibulum was grasped and reflected laterally. Cystic artery and duct dissected free. Critical view obtained. Cystic artery and duct double clipped proximally and divided. Gallbladder dissected free from liver bed obtaining good hemostasis prior to division of final peritoneal attachments. Gallbladder and contents removed and submitted to Pathology. Good hemostasis was ensured with cautery. Irrigant and pneumoperitoneum were evacuated. All instruments were removed. All skin incisions were approximated with interrupted subdermal 4-0 Monocryl and Carrabelle glue applied. Job ID: [id number]
[2019-11-10 18:18] VITALS: BP 145/89; TEMP 98
[2019-11-10] MEDS ORDERED: Enoxaparin Sodium 40 MG/0.4 ML SYRINGE SC SCH (21:00)
--- NOTE | 2019-11-12 08:55 | DIS ---
DATE OF ADMISSION: 11/10/2019 DATE OF DISCHARGE: 11/10/2019 DISCHARGE DIAGNOSES: Chronic cholecystitis, acute cholecystitis, cholelithiasis, morbid obesity. POSTOPERATIVE DIAGNOSES: Chronic cholecystitis, acute cholecystitis, cholelithiasis, morbid obesity. PROCEDURES DURING HOSPITALIZATION: Ultrasound of the gallbladder, normal liver function test, evaluation in the emergency room, laparoscopic video cholecystectomy. DISCHARGE MEDICATIONS: 1. Motrin [id number] for pain. 2. Ultram p.r.n. pain. FOLLOWUP: Follow up in my office in 2 to 3 weeks' time. DIET AND ACTIVITY: As tolerated. No lifting restriction. Shower and bathe at any time. HISTORY: A 29-year-old female, recently , who presents with acute cholecystitis. Ultrasound confirming gallstones in the emergency room. Liver function tests normal. Admitted overnight, received intravenous fluids and antibiotics, underwent laparoscopic video cholecystectomy. Postoperatively, discharged home. Follow up in my office 2 to 3 weeks. Job ID: [id number]
== END 2019-11-10 20:30 | disposition home or self-care (01) ==
LOC: ERS 01:42 → MERGE 04:04 → SURG A 04:04
PROVIDERS: ADMIT Specialist; ATTEND Specialist
PROC: 0FT44ZZ Resection of Gallbladder, Percutaneous Endoscopic Approach (ICD-10-PCS; principal; 2019-11-10)
DX: K80.13 Calculus of gallbladder with acute and chronic cholecystitis with obstruction (principal); E66.01 Morbid (severe) obesity due to excess calories; Z68.43 Body mass index [BMI] 50.0-59.9, adult; Z79.899 Other long term (current) drug therapy
CPT/HCPCS: 71045; 76705; 80053; 83690; 84703; 85025; 88304; 96361; 96374; 96375; 96376; G0378; J1100; J1200; J1885; J1956; J2001; J2270; J2405; J2704; J3010; S0020

== ENCOUNTER 2021-02-05 17:44 | Emergency (ER) | payer OTHER ==
[2021-02-05 18:30] LABS: Bilirubin Negative (Negative); Blood, Urine Moderate (Negative); Glucose, Urine (Dipstick) Negative (Negative); Ketone, Urine Trace mg/dL (Negative); Leukocyte Negative (Negative); Nitrite Negative (Negative); Protein, Urine (Dipstick) Negative (Neg-Trace); pH, Urine 6.5 (5.0-9.0)
[2021-02-05 18:30] LABS: #Eosinphils 0.2 thou/uL (0.0-0.7); #Lymphocytes 2.7 thou/uL (1.20-3.40); #Monocytes 0.6 thou/uL (0.11-0.59); #Neutrophils 4.4 thou/uL (1.40-6.50); %Basophils 0.1 % (0.0-1.0); %Eosinophils 2.1 % (0.0-10.0); %Lymphocytes 33.8 % (21.0-51.0); %Neutrophils 55.9 % (42.0-75.0); Hemoglobin 14.6 g/dL (12.0-16.0); Mean Corpuscular HGB CONC 33.3 g/dL (32.0-36.0); Mean Corpuscular Hemoglobin 29.8 pg (27.0-31.0); Mean Corpuscular Volume 89.3 fL (78.0-98.0); Mean Platelet Volume 8.2 fL (7.4-10.4); Platelet Count 236 thou/uL (130-400); RBC Distribution Width 12.9 % (11.5-14.5); White Blood Cell (WBC) Count 7.9 thou/uL (4.8-10.8)
[2021-02-05 18:32] LABS: Clarity Clear (Clear)
[2021-02-05 18:36] LABS: WBC/HPF 0-3 HPF (0-3)
[2021-02-05 18:45] LABS: ALT (SGPT) 169 U/L (8-55); AST (SGOT) 108 U/L (5-34); Albumin 3.9 g/dL (3.5-5.0); Alkaline Phosphatase 82 U/L (40-110); Anion Gap 10 mmol/L (10-20); BUN (Urea Nitrogen) 14 mg/dL (7.0-18.7); Bilirubin, Total 0.6 mg/dL (0.2-1.2); Calc. Creatinine Clearance 0 mL/min (70-130); Calcium 9.5 mg/dL (7.8-10.44); Carbon Dioxide 24 mmol/L (22-29); Chloride 110 mmol/L (98-107); Globulin 3.3 g/dL (2.4-3.5); Glucose 94 mg/dL (70-105); Potassium 3.9 mmol/L (3.5-5.1); Protein, Total 7.2 g/dL (6.0-8.3); Sodium 140 mmol/L (136-145)
[2021-02-05] MEDS ORDERED: Ketorolac Tromethamine 30 MG/ML VIAL ONE (18:55)
[2021-02-05 19:09] LABS: BHCG - Serum Negative (NEGATIVE); Pregs Control Background? CLEAR/WHITE (CLR/WHITE); Pregs Control Bar Appear? YES (CONTROL BAR)
== END 2021-02-05 20:18 | disposition home or self-care (01) ==
LOC: ERS 17:44
DX: N20.0 Calculus of kidney (principal); E03.9 Hypothyroidism, unspecified
CPT/HCPCS: 36415; 74176; 80053; 81003; 81015; 83690; 84703; 85025; 96374; J1885

== ENCOUNTER 2021-02-06 03:43 | Emergency (ER) | payer OTHER ==
[2021-02-06] MEDS ORDERED: Ondansetron ODT 4 MG TAB ONE (04:28)
[2021-02-06] MEDS ORDERED: Morphine 4 MG/ML VIAL ONE (04:28)
[2021-02-06] MEDS ORDERED: HYDROcodone/Acetaminophen 5/325 mg Tablet ONE (04:28)
== END 2021-02-06 05:38 | disposition home or self-care (01) ==
LOC: ERS 03:43
DX: M54.5 Low back pain (principal); E03.9 Hypothyroidism, unspecified; Z79.899 Other long term (current) drug therapy
CPT/HCPCS: 96372; 99283; J2270; Q0162

== ENCOUNTER 2021-05-24 19:19 | Emergency (ER) | payer OTHER ==
[2021-05-24 20:20] LABS: #Eosinphils 0.2 thou/uL (0.0-0.7); #Lymphocytes 2.2 thou/uL (1.20-3.40); #Monocytes 0.5 thou/uL (0.11-0.59); %Basophils 0.3 % (0.0-1.0); %Lymphocytes 37.4 % (21.0-51.0); %Monocytes 8.3 % (0.0-10.0); Hemoglobin 14.8 g/dL (12.0-16.0); Mean Corpuscular HGB CONC 34.8 g/dL (32.0-36.0); Mean Corpuscular Hemoglobin 31.1 pg (27.0-31.0); Mean Corpuscular Volume 89.3 fL (78.0-98.0); Mean Platelet Volume 8.7 fL (7.4-10.4); Platelet Count 198 thou/uL (130-400); RBC Distribution Width 13.7 % (11.5-14.5); Red Blood Cell (RBC) Count 4.75 mill/uL (4.20-5.40); White Blood Cell (WBC) Count 5.8 thou/uL (4.8-10.8)
[2021-05-24 20:46] LABS: ALT (SGPT) 111 U/L (8-55); AST (SGOT) 62 U/L (5-34); Albumin 3.9 g/dL (3.5-5.0); Alkaline Phosphatase 83 U/L (40-110); Anion Gap 13 mmol/L (10-20); BUN (Urea Nitrogen) 8 mg/dL (7.0-18.7); Bilirubin, Total 0.8 mg/dL (0.2-1.2); Calc. Creatinine Clearance 0 mL/min (70-130); Calcium 9.3 mg/dL (7.8-10.44); Carbon Dioxide 23 mmol/L (22-29); Chloride 103 mmol/L (98-107); Globulin 2.7 g/dL (2.4-3.5); Glucose 451 mg/dL (70-105); Lipase 24 U/L (8-78); Magnesium 1.6 mg/dL (1.6-2.6); Protein, Total 6.6 g/dL (6.0-8.3); Sodium 135 mmol/L (136-145)
[2021-05-24 20:48] LABS: Bilirubin Negative (Negative); Blood, Urine Negative (Negative); Clarity Clear (Clear); Glucose, Urine (Dipstick) Greater than 1000 mg/dL (Negative); Ketone, Urine 20 mg/dL (Negative); Leukocyte Negative Leu/uL (Negative); Nitrite Negative (Negative); Protein, Urine (Dipstick) Negative (Neg-Trace); Specific Gravity, Urine 1.048 (1.002-1.036); Urobilinogen Normal mg/dL (Less than 2); pH, Urine 6.5 (5.0-9.0)
[2021-05-24 21:00] LABS: Thyroid Stimulating Hormone 2.2078 uIU/mL (0.35-4.94)
[2021-05-24 21:03] LABS: BHCG - Serum Negative (NEGATIVE); Pregs Control Background? CLEAR/WHITE (CLR/WHITE); Pregs Control Bar Appear? YES (CONTROL BAR)
[2021-05-24 21:56] LABS: Actual Bicarbonate (HCO3v) 21 mEq/L (22-28); Analyzer IN Cardio ER; Calcium, Ionized (venous) 1.17 mmol/L (1.16-1.32); Chloride (VBG) 101 mmol/L (98-106); Hemoglobin (Hb) 15.3 g/dL (11.7-15.5); Potassium (VBG) 3.71 mmol/L (3.70-5.30); Sodium 134.9 mmol/L (133-146); pH (venous) 7.35 (7.32-7.43)
== END 2021-05-24 21:45 | disposition home or self-care (01) ==
LOC: ERS 19:19
DX: E11.65 Type 2 diabetes mellitus with hyperglycemia (principal); Z79.899 Other long term (current) drug therapy; E03.9 Hypothyroidism, unspecified
CPT/HCPCS: 36416; 71045; 80053; 81003; 82010; 82805; 83605; 83690; 83735; 83880; 84443; 84484; 84703; 85025; 87086

== ENCOUNTER 2023-06-16 17:13 | Emergency (ER) | payer OTHER ==
[2023-06-16 18:23] LABS: Pregnancy Test - Urine (BHCG) Negative (Negative); Pregu Control Background? CLEAR/WHITE (CLR/WHITE); Pregu Control Bar Appear? YES (CONTROL BAR)
== END 2023-06-16 18:57 | disposition home or self-care (01) ==
LOC: ERS 17:13
DX: M54.50 Low back pain, unspecified (principal); M54.2 Cervicalgia; E03.9 Hypothyroidism, unspecified
CPT/HCPCS: 72125; 72131; 81025

== ENCOUNTER 2023-12-28 17:25 | Emergency (ER) | payer MEDICAID, SELFPAY | END 2023-12-28 22:11 | disposition home or self-care (01) | LOC: ERS 17:25 | DX: O20.9 Hemorrhage in early pregnancy, unspecified (principal); O99.281 Endocrine, nutritional and metabolic diseases complicating pregnancy, first trimester; E03.9 Hypothyroidism, unspecified; Z3A.01 Less than 8 weeks gestation of pregnancy | CPT/HCPCS: 36415; 76856; 81001; 81025; 84702; 85025; 86850; 86900; 86901 ==